=== PATIENT | female | born 1960 | race Caucasian/White ===

== ENCOUNTER 2025-02-25 09:28 | Outpatient (CLI) | payer MEDICARE, SELFPAY ==
[2025-02-25] VITALS (18 sets, daily range): BP systolic 115–144; BP diastolic 56–88; PULSE 104–112; RESP 17–24; TEMP 36.4; O2SAT 93–96
--- NOTE | 2025-02-25 | DI.RAD.S_ITS ---
PROCEDURE: XR CHEST 1V INDICATIONS: POST LUNG BIOPSY 2 HOUR FILM 1:05PM TECHNIQUE: One view of the chest was acquired. COMPARISON: [facility], CR, XR CHEST 1V, 02/25/2025, 10:57. FINDINGS: Surgical changes and devices: None. Lungs and pleura: Trace right apical pneumothorax, similar in size compared with prior. Stable right upper lobe nodule. Mediastinum: Mediastinal contours appear normal. Heart size is normal. Bones and chest wall: No suspicious bony lesions. Trace subcutaneous gas overlying the right chest wall. IMPRESSION: New trace subcutaneous gas overlying the right chest wall. The right pneumothorax is stable in size. Recommend additional 2 hour x-ray follow-up to evaluate for change . Dictated by: Junior Desir M.D. on 02/25/2025 at 13:44 Approved by: Junior Desir M.D. on 02/25/2025 at 13:45
--- NOTE | 2025-02-25 | DI.RAD.S_ITS ---
PROCEDURE: XR CHEST 1V INDICATIONS: POST LUNG BIOPSY IMMEDIATE FILM 11:05 TECHNIQUE: One view of the chest was acquired. COMPARISON: None. FINDINGS: Surgical changes and devices: None. Lungs and pleura: Trace right apical pneumothorax. Slight hemorrhage of the right upper lobe nodule. Mediastinum: Mediastinal contours appear normal. Heart size is normal. Bones and chest wall: No suspicious bony lesions. Overlying soft tissues appear unremarkable. IMPRESSION: Trace right apical pneumothorax. No evidence of tension. Dictated by: Junior Desir M.D. on 02/25/2025 at 11:37 Approved by: Junior Desir M.D. on 02/25/2025 at 11:38
--- NOTE | 2025-02-25 | PATH_ITS ---
[facility] Accession Number: [id number] No. of containers..01 Tissue . 01 Material submitted: . lung - RIGHT UPPER LUNG . 01 Diagnosis: RIGHT UPPER LUNG, NEEDLE CORE BIOPSY: Adenocarcioma with lepidic pattern, focally invasive. MRV 03/03/2025 1528 Local . 01 Comment: The histologic features are compatible with lung primary in the appropriate clinical and radiological setting. As part of ongoing quality management nurse, this case is also reviewed by Dr. Sammi Restrepo, who agrees with the interpretation. . An attempt was made to reach the provider's office but was unsuccessful. . 01 Electronically signed: . Kelsie Hogn MD, Pathologist NPI- [id number] . 01 Gross description: . RIGHT UPPER LUNG: Received in formalin are 2 fragment(s) of martinez, soft tissue measuring 0.7 x 0.1 x 0.1 cm to 0.8 x 0.1 x 0.1 cm submitted entirely in 1 cassette(s). /RICKY 02/28/20254 Local . 01 Pathologist provided ICD-10: C34.91 . 01 CPT . 005636 Specimen Comment: A courtesy copy of this report has been sent to [phone] Specimen Comment: [facility] Performed at: [address] [address], [place], [place] [id number] MD Kash August MD Phone: [phone]
--- NOTE | 2025-02-25 09:31 | DI.CT.S_ITS ---
PROCEDURE: CT BIOPSY LUNG RT Sedation analgesia for 18 minutes. INDICATIONS: NODULE UPPER LOBE RT LUNG TECHNIQUE: The indications, alternatives, benefits, risks, and possible complications of the procedure were communicated to the patient. Informed written consent from the patient was obtained and placed in the chart. Continuous EKG and hemodynamic monitoring was started by trained personnel. The patient was brought to the CT suite and helicopter mechanic spiral CT imaging was performed with localization grid. The appropriate site for percutaneous access to the biopsy target was marked, was prepped and draped sterilely, and was infused with local anaesthesia. Under CT guidance, a core biopsy trocar and needle set was advanced to the biopsy target, and specimen(s) were obtained. The trocar and needle were then removed, and the patient was sent for post-procedure monitoring. COMPARISON: None. FINDINGS: Biopsy site: Right upper lobe Needle: 18 gauge biopsy needle with introducer trocar. Number of passes: 4 Medications: 1% lidocaine for local anaesthesia. IV Fentanyl and Versed for conscious sedation for 18 minutes (see nursing record). Complications: Trace right apical pneumothorax. IMPRESSION: Successful CT-guided biopsy of a right upper lobe nodule . Dictated by: Junior Desir M.D. on 02/25/2025 at 11:38 Approved by: uJnior Desir M.D. on 02/25/2025 at 11:40
[2025-02-25 10:07] LABS: Hematocrit 47.2 % (36-46); Hemoglobin 16.2 g/dL (12.0-16.0); Mean Corpuscular HGB Conc 34.4 % (30-36); Mean Corpuscular Hemoglobin 34.9 PG (26-34); Mean Corpuscular Volume 101.3 fL (80-100); Platelet Count 238 X10^3/uL (150-400); Red Blood Cell Count 4.66 X10^6/uL (4.0-5.2); Red Cell Distribution Width 14.3 % (11.6-14.8); White Blood Cell Count 9.9 X10^3/uL (4.5-11.0)
[2025-02-25 10:16] LABS: INR 0.8 (0.9-1.3); Prothrombin Time 9.4 SECONDS (9.4-12.5)
[2025-02-25] MEDS: fentaNYL 100 MCG/2 ML INJ 25 MCG IV (10:40)
[2025-02-25] MEDS: MIDAZOLAM 2 MG/2 ML VIAL 1 MG IV (10:40)
--- NOTE | 2025-02-25 15:00 | DI.RAD.S_ITS ---
PROCEDURE: XR CHEST 1V INDICATIONS: S/P CT guided percutaneous right lung biopsy TECHNIQUE: One view of the chest was acquired. COMPARISON: [facility], CR, XR CHEST 1V, 02/25/2025, 12:53. [facility], CR, XR CHEST 1V, 02/25/2025, 10:57. FINDINGS: Surgical changes and devices: None. Lungs and pleura: Stable trace right apical pneumothorax. Mediastinum: Mediastinal contours appear normal. Heart size is normal. Bones and chest wall: No suspicious bony lesions. Subcutaneous gas overlying the right chest wall, minimally increased from prior. IMPRESSION: Stable trace right apical pneumothorax, without evidence of tension. Slight interval increase in subcutaneous gas along the right chest wall . Given no interval change of the pneumothorax size after 4 hours, a decision was made to discharge with instructions to return if there is an increase in shortness of breath or other changes. Dictated by: Junior Desir M.D. on 02/25/2025 at 15:05 Approved by: Junior Desir M.D. on 02/25/2025 at 15:08
--- NOTE | 2025-02-25 15:31 | PC.NURSE ---
1520 Surgical dressing changed before discharge d/t pea sized drop of blood. Dr. Desir notified.
== END 2025-02-25 15:24 | disposition home or self-care (01) ==
LOC: CT 09:31
PROVIDERS: Radiology Diagnostic Radiology; PCP Registered Nurse; Referring Provider Internal Medicine Medical Oncology; Visit Provider Internal Medicine Medical Oncology
DX: C34.11 Malignant neoplasm of upper lobe, right bronchus or lung (principal); C34.12 Malignant neoplasm of upper lobe, left bronchus or lung
CPT/HCPCS: 32408; 71045; 85027; 85610; 99152; J2250; J3010